=== PATIENT | male | born 1960 | race Caucasian/White ===

== ENCOUNTER 2016-10-12 08:22 | Emergency (ER) | payer OTHER ==
--- NOTE | ~2016-10-12 | US84 ---
[id number] [facility]. [facility] [address]. [place], [place] [address] [id number] E MR#: [id number] Acc #: [id number] NAME: RODNEY FERREIRA : 1960 SEX: M STUDY DATE/TIME: 10/12/2016 11:47 UNIT: [facility] ROOM: STUDY DESCRIPTION: US LE Veins Complete Elpidio Stdy Attending Physician: Timbo Garcia Aprn Ordering Physician: Ed Doc Leo Lorenzo Primary Care Physician: No Primary Care Physician MEDICAL IMAGING REPORT This report is preliminary unless electronic signature is present EXAM Bilateral lower extremity venous Doppler 10/12/2016 HISTORY Bilateral leg swelling and redness for 2 weeks. TECHNIQUE Venous ultrasound examination of both lower extremities was performed using grayscale, spectral Doppler and color flow Doppler imaging. FINDINGS The examination is negative. There is no evidence of deep venous thrombus from the groin to the lower calf bilaterally. Visualized greater saphenous veins are also patent. IMPRESSION Negative examination. No evidence of lower extremity deep venous thrombosis. Dictated by... Prabhjot Bonilla M.D. THIS IS AN ELECTRONICALLY VERIFIED REPORT Prabhjot Bonilla M.D. at 10/13/2016 5:04 PM TEV/marino TD: 10/12/2016 15:02 JOB #: [id number] MEDICAL IMAGING REPORT Page 1 of 1 COPY
[2016-10-12 10:10] LABS: BASOPHIL% 0.3 % (0-2.5); EOSINOPHIL# 0.2 X10e3 (0-0.7); EOSINOPHIL% 4.5 % (0.0-7.0); HEMATOCRIT 43.1 % (38.0-50.0); HEMOGLOBIN 14.4 gm/dL (13.0-16.0); LYMPHOCYTE# 1.3 X10e3 (1.0-3.5); LYMPHOCYTE% 36.3 % (17.0-45.0); MEAN CELL VOLUME 86.1 FL (83-96); MEAN CORPUSCULAR HEMOGLOBIN 28.7 PG (28-34); MEAN CORPUSCULAR HGB CONC 33.4 g/dL (30-36); MEAN PLATELET VOLUME 7.9 FL (6.5-11.5); MONOCYTE# 0.3 X10e3 (0-1.0); MONOCYTE% 8.6 % (3.0-12.0); NEUTROPHIL# 1.8 X10e3 (1.5-7.1); NEUTROPHIL% 50.3 % (40-75); RED BLOOD COUNT 5.01 X10e (3.90-5.60); RED CELL DISTRIBUTION WIDTH 14.2 % (11.0-15.5); WHITE BLOOD COUNT 3.7 X10e3 (4.0-10.5)
[2016-10-12 10:14] LABS: PARTIAL THROMBOPLASTIN TIME 27.3 SECONDS (23.5-31.3); PROTHROMBIN TIME (PATIENT) 10.7 SECONDS (9.6-11.5)
[2016-10-12 10:31] LABS: ALBUMIN SERUM 3.6 g/dL (3.5-5.0); BILIRUBIN,TOTAL 0.8 mg/dL (0.2-2.0); BUN/CREATININE RATIO 28.57; CREATININE SERUM 0.7 mg/dL (0.6-1.4); GLOM FILT RATE Estimated 105.5 mL/min (>60); PROTEIN TOTAL SERUM 7.3 g/dL (6.0-8.3)
[2016-10-12 11:01] LABS: PLATELET COUNT 85 X10e3 (140-420)
[2016-10-12 11:02] LABS: DIFF IND YES
[2016-10-12 11:12] LABS: PLATELET ESTIMATE DECREASED (NORMAL)
[2016-10-12 11:15] LABS: RBC NORMAL YES
== END 2016-10-12 13:30 | disposition home or self-care (01) ==
LOC: CED 08:22
PROVIDERS: Nurse Practitioner Family
DX: L03.811 Cellulitis of head [any part, except face] (principal)
CPT/HCPCS: 80053; 85025; 85610; 85730; 93970; 99284